=== PATIENT | male | born 1955 | race Caucasian/White ===

== ENCOUNTER 2023-03-16 10:29 | Outpatient (CLI) | payer MEDICARE, BC | END 2023-03-16 10:30 | disposition home or self-care (01) | LOC: CSHCT 10:29 | PROVIDERS: ATTEND Otolaryngology Plastic Surgery within the Head & Neck | DX: H92.11 Otorrhea, right ear (principal); H65.21 Chronic serous otitis media, right ear; Z96.22 Myringotomy tube(s) status; H74.8X1 Other specified disorders of right middle ear and mastoid | CPT/HCPCS: 70480 ==

== ENCOUNTER 2023-05-02 10:07 | Outpatient (CLI) | payer MEDICARE, BC ==
[2023-05-02 11:59] LABS: Hematocrit 37.3 % (38.8-50.0); Hemoglobin 12.8 g/dL (13.5-17.5)
[2023-05-02 12:27] LABS: Anion Gap 14 mmol/L (10-20); BUN (Urea Nitrogen) 18 mg/dL (8.4-25.7); Calc. Creatinine Clearance 0 mL/min (70-130); Calcium 9.2 mg/dL (7.8-10.44); Carbon Dioxide 23 mmol/L (23-31); Chloride 109 mmol/L (98-107); Estimated GFR 63; Glucose 92 mg/dL (80-115); Potassium 4.1 mmol/L (3.5-5.1); Sodium 142 mmol/L (136-145)
== END 2023-05-02 10:08 | disposition home or self-care (01) ==
LOC: CSHLAB 10:07
PROVIDERS: ATTEND Otolaryngology Plastic Surgery within the Head & Neck
DX: Z01.818 Encounter for other preprocedural examination (principal); H65.21 Chronic serous otitis media, right ear; H70.11 Chronic mastoiditis, right ear
CPT/HCPCS: 80048; 85014; 85018; 93005; 93010

== ENCOUNTER 2023-05-07 08:28 | Day surgery (SDC) | payer MEDICARE, BC ==
[2023-05-02 10:53] VITALS: BMI 26.6
[~2023-05-07 08:28] MED LIST: EPINEPHrine 1 MG/ML AMP ONE; Mupirocin 2% Ointment 22 GM Tube ONE; oFLOXacin 0.3% Opth 5 ML BOT ONE
[2023-05-07] MEDS ORDERED: HYDROcodone/Acetaminophen 5/325 mg Tablet ONE (10:19)
== END 2023-05-07 11:40 | disposition home or self-care (01) ==
LOC: CSHSDC 08:28
PROVIDERS: ATTEND Otolaryngology Plastic Surgery within the Head & Neck
PROC: 0NB50ZZ Excision of Right Temporal Bone, Open Approach (ICD-10-PCS; principal; 2023-05-07)
PROC: 099500Z Drainage of Right Middle Ear with Drainage Device, Open Approach (ICD-10-PCS; 2023-05-07)
DX: H70.11 Chronic mastoiditis, right ear (principal); H69.91 Unspecified Eustachian tube disorder, right ear; H65.21 Chronic serous otitis media, right ear; C85.91 Non-Hodgkin lymphoma, unspecified, lymph nodes of head, face, and neck; Z88.0 Allergy status to penicillin; Z88.2 Allergy status to sulfonamides
CPT/HCPCS: 69436; 69502; C1713; L8699; 88305; J0171